=== PATIENT | male | born 1960 | race Caucasian/White ===

== ENCOUNTER → 2018-09-08 | Outpatient (CLI) | payer OTHER ==
--- NOTE | 2018-09-08 14:13 | PCVCIMAG ---
APPROVED REPORT Indications Bruit Risk Factors Hypertension: Hyperlipidemia Doppler Spectral Velocity Analysis PSV / EDVPSV / EDV ECA (R) 151 / 11 cm/sECA (L) 148 / 18 cm/s dICA (R) 87 / 28 cm/sdICA (L) 75 / 25 cm/s Derick (R) 77 / 22 cm/smICA (L) 82 / 28 cm/s pICA (R) 65 / 15 cm/spICA (L) 70 / 10 cm/s Bulb (R) 72 / 16 cm/sBulb (L) 73 / 16 cm/s dCCA (R) 87 / 21 cm/sdCCA (L) 100 / 23 cm/s mCCA (R) 104 / 19 cm/smCCA (L) 107 / 18 cm/s Vert (R) 63 / 9 cm/sVert (L) 63 / 14 cm/s ICA/CCA 1.00ICA/CCA 0.82 Basic Measurements Blood Pressure: Pulses: Right Left RightLeft Brachial(Sitting) 184/21ppTv229/88mmHgTemporal Real Time B-Mode Imaging Vert. (R)AntegradeVert. (L)Antegrade Findings The right carotid bulb has minimal plaque. The right proximal internal carotid artery shows no significant stenosis. The right common carotid artery shows no significant stenosis. The right external carotid artery shows no significant stenosis. The left carotid bulb has mild plaque. The left proximal internal carotid artery shows no significant stenosis. The left common carotid artery shows no significant stenosis. The left external carotid artery shows no significant stenosis. Conclusion 1. No significant stenosis involving either carotid artery 2. Antegrade vertebral flow
--- NOTE | 2018-09-08 15:31 | PCVCIMAG ---
APPROVED REPORT Study performed: 09/08/2018 13:51:35 Exam: Stress Echocardiogram Indication: Hyperlipidemia, Hypertension, Elevated Calcium score Patient Location: Echo lab Stress Nurse: Carissa Stoll RN Status: routine Ht: 6 ft 1 in HR: 120 bpm BP: 150/84 mmHg Rhythm: NSR Medical History Medical History: Hyperlipidemia, HTN, Family history of CAD Procedure The patient underwent an Exercise Stress Test using the Carmelo Protocol. Blood pressure, heart rate, and EKG were monitored. An Echocardiogram was performed by audio technician in four stages in quad fashion. At peak stress, four selected images were obtained and placed side by side with resting images for comparison. Stress Test Details Stress Test: Exercise stress testing was performed using a Carmelo protocol. HR Resting HR: 120 bpmMax Heart Rate (APMHR): 161 bpm Max HR Achieved: 181 bpmTarget HR (85% APMHR): 136 bpm % of APMHR: 112 Recovery HR: 133 bpm HR response to stress: Accelerated HR response to stress BP Resting BP: 150/84 mmHg Max BP: 192/84 mmHg Recovery BP: 180/82 mmHg BP response to stress: Normal blood pressure response to stress. ECG Resting ECG: Sinus Rhythm Stress ECG: Sinus Rhythm ST Change: Horizontal ST depression Maximum ST Deviation: 1 mm Arrhythmia: None Recovery ECG: Sinus Rhythm Recovery ST Change: Normal Recovery ST Deviation: 0 mm Recovery Arrhythmia: None Clinical Reason for Termination: Maximal effort Exercise duration: 10 min 14 sec Highest Stage Achieved: Stage 4: 4.2 mph at 16% grade. Exercise capacity: 13.40 METs Overall Exercise Capacity for Age: Normal Angina Score: None Stress ECG Conclusion Clinical: Non-ischemic Abnormal exercise stress ECG, abnormality resolving immediately in recovery phase likely false positive Vogel Treadmill Score is 5.0 which is Low risk. Pre-Stress Echo The resting Echocardiogram showed normal left ventricular contractility with an estimated Ejection Fraction of about 55-60%. Normal wall motion in all segments on baseline images. Post-Stress Echo The stress Echocardiogram showed normal left ventricular contractility with an estimated Ejection Fraction of about 60-65%. Normal augmentation of wall motion in all segments on post stress images. Clinical No clinical or ECG evidence for ischemia. Conclusion Clinical Response: Non-ischemic Exercise Capacity: Average Stress ECG Response: Ischemic Stress Echo Images: Non-ischemic The left ventricle is normal in size and wall thickness in both the rest and stress images. Normal stress echocardiogram with maximal exercise stress. Other Information Study Quality: Good <Conclusion> The left ventricle is normal in size and wall thickness in both the rest and stress images. Normal stress echocardiogram with maximal exercise stress.
== END | disposition home or self-care (01) ==
LOC: PCVCIMAG 13:13
PROVIDERS: ATTEND Internal Medicine
DX: I65.23 Occlusion and stenosis of bilateral carotid arteries (principal); R09.89 Other specified symptoms and signs involving the circulatory and respiratory systems; R93.1 Abnormal findings on diagnostic imaging of heart and coronary circulation; I10 Essential (primary) hypertension; E78.5 Hyperlipidemia, unspecified; Z82.49 Family history of ischemic heart disease and other diseases of the circulatory system
CPT/HCPCS: 93325; 93351; 93880